=== PATIENT | female | born 1975 | race African-American/Black ===

== ENCOUNTER 2023-01-03 13:19 | Emergency (ER) | payer MEDICAID, OTHER ==
[~2023-01-03] VITALS: Ht 167.6 cm; Wt 75.0 kg
[~2023-01-03 13:19] MED LIST: ALBUTEROL
[2023-01-03 13:23] VITALS: BP 142/64
== END 2023-01-03 13:47 | disposition left against medical advice (07) ==
LOC: ER 13:19
DX: Z53.21 Procedure and treatment not carried out due to patient leaving prior to being seen by health care provider (principal); Z85.6 Personal history of leukemia
CPT/HCPCS: 99281

== ENCOUNTER 2024-02-07 16:28 | Emergency (ER) | payer OTHER, MEDICAID ==
[~2024-02-07] VITALS: Ht 165.1 cm; Wt 68.0 kg
[2024-02-07 16:32] VITALS: O2SAT 100
[2024-02-07] MEDS: ACETAMINOPHEN 325MG TABLET PO ONE (16:45)
[2024-02-07 17:14] LABS: BASOPHILS % 0.6 % (0.0-2.0); EOSINOPHILS % 2.5 % (0.0-5.0); HEMATOCRIT. 31.6 % (36.0-48.0); HEMOGLOBIN. 10.9 g/dL (12.0-16.0); LYMPHOCYTES % 16.1 % (20.0-50.0); MEAN CORPUSCULAR HEMOGLOBIN 32.2 pg (28.0-32.0); MEAN CORPUSCULAR HGB CONC 34.6 g/dL (31.0-37.0); MEAN CORPUSCULAR VOLUME 93.2 fL (81.0-99.0); MEAN PLATELET VOLUME 7.3 fl (7.4-10.4); MONOCYTES % 11.7 % (2.0-8.0); NEUTROPHILS % 69.1 % (40.0-76.0); PLATELET 576 x1000/uL (130-400); RED BLOOD CELL COUNT 3.39 mill/uL (4.2-5.4); WHITE BLOOD COUNT 9.5 x1000/uL (4.5-11.0)
[2024-02-07 17:20] LABS: CHLORIDE 101 mEq/L (98-107); POTASSIUM 3.7 mEq/L (3.5-5.1); SODIUM 134 mEq/L (136-145)
[2024-02-07 17:21] LABS: CALCIUM 8.4 mg/dL (8.7-10.4); CARBON DIOXIDE 27 mEq/L (21-32)
[2024-02-07 17:26] LABS: CREATININE 0.7 mg/dL (0.6-1.0); GLUCOSE 120 mg/dL (70-105); UREA NITROGEN BLOOD 8 mg/dL (9-23)
[2024-02-07 17:27] LABS: TROPONIN I HIGH SENSITIVITY < 4 ng/L (3.0-34)
[2024-02-07 17:28] LABS: ALANINE AMINOTRANSFERASE 15 IU/L (10-49); ASPARTATE AMINOTRANSFERASE 19 IU/L (<34); BILIRUBIN TOTAL 0.3 mg/dL (0.1-1.0); PROTEIN TOTAL 7.8 g/dL (6.0-8.3)
[2024-02-07 17:30] VITALS: TEMP 98.9
[2024-02-07 18:55] LABS: HCG SCREEN NEGATIVE
[2024-02-07 19:22] VITALS: BP 131/69; PULSE 82; RESP 16
[2024-02-07] MEDS ORDERED: IOHEXOL-350 100 ML BOTTLE ONE (20:10)
== END 2024-02-07 19:35 | disposition home or self-care (01) ==
LOC: ER 16:28
DX: R55 Syncope and collapse (principal); R07.89 Other chest pain; R91.1 Solitary pulmonary nodule
CPT/HCPCS: 99285; 71275; 71045; 80053; 84703; 85025; 85379; 84484; 36415; 93005; Q9967